=== PATIENT | female | born 1945 | race Caucasian/White ===

== ENCOUNTER → 2017-05-24 | Outpatient (CLI) | payer OTHER | LOC: RAD 01:34 | DX: Z12.31 Encounter for screening mammogram for malignant neoplasm of breast (principal) ==

== ENCOUNTER → 2018-06-20 | Outpatient (CLI) | payer OTHER ==
[~2018-06-20] VITALS: Ht 172.7 cm; Wt 73.9 kg
[~2018-06-20] MED LIST: ASPIR 8181 MG PO; CENTRUM SILVER1 EAC4 PO; NAPROSYN500 MG PO; ZOCOR20 MG PO; ZYRTEC10 M5 PO
--- NOTE | ~2018-06-20 | P ---
[facility] [place] [address] PROCEDURE REPORT Name: STANLEY GARCIA Room #: REG [facility]#: [id number] Admission: 06/20/18 Attend Phys: Alejandro Brandon MD Discharge: Date of : 49 Report #: [id number] THIS REPORT FOR: //name// CC: Alejandro Nicholas BRIEF HISTORY: The patient is a 73-year-old woman with history of colon adenoma, for high risk screening colonoscopy. PREOPERATIVE DIAGNOSIS: High risk screening colonoscopy. POSTOPERATIVE DIAGNOSES: 1. Cecal polyp. 2. Moderate left-sided diverticulosis coli with questionable focal diverticulitis. MEDICATIONS: Deep sedation with propofol per Anesthesia. SPECIMEN: Cecal polyp. ESTIMATED BLOOD LOSS: 3 mL. PROCEDURE: Colonoscopy to cecum and terminal ileum with biopsy. FINDINGS: Prior to propofol sedation, procedure of colonoscopy discussed with the patient as well as potential risks and its complications. She indicates she understands and desires to proceed. DESCRIPTION OF PROCEDURE: With the patient in left lateral decubitus position, digital examination was completed, which revealed no abnormalities. Subsequently, the Olympus video colonoscope was introduced in the rectum, advanced under direct vision to the cecum. Done with minimal difficulty. The cecum was identified by the ileocecal valve and the appendiceal orifice. I was able to visualize the distal segment of terminal ileum, which was inspected and noted to be unremarkable. At that point, the scope was slowly withdrawn and careful circumferential views obtained including retroflexing the scope in the ascending colon. Upon slow withdrawal of the scope, the prep was noted to be excellent. The mucosa was within normal limits, normal vascular pattern, normal light reflex. In the cecum, a 2 x 4-5 mm flat polyp was seen and removed with multiple passes of the biopsy forceps. As we withdrew the scope through the remainder of the colon, no additional polyps were seen. The mucosa was normal. In his left colon, particularly the sigmoid colon, there was moderately severe diverticular disease. There were 2 diverticula, small amount of whitish material indicating possibly of focal diverticulitis. Large amount of purulent material was not seen. Scope was further withdrawn and no additional [facility] [address] [place] [address] PROCEDURE REPORT Name: STANLEY GARCIA Room #: REG [facility]#: [id number] Admission: 06/20/18 Attend Phys: Alejandro Brandon MD Discharge: Date of : 49 Report #: [id number] abnormalities were seen. Scope was withdrawn in the rectum. Upon retroflexion, no abnormalities were seen. Scope was withdrawn. The patient tolerated the procedure well. CONDITION OF THE PATIENT UPON DISCHARGE: Following the procedure, the patient is drowsy, aroused, conversant and will be discharged home when fully ambulatory. INSTRUCTIONS TO THE PATIENT AND FAMILY AT THE TIME OF DISCHARGE: We will follow up with the pathology of the polyp. If the polyp is an adenomatous, return in 5 years; if it is hyperplastic, then 10 years. There is a question of focal diverticulitis involving 2 separate diverticula. We will empirically place her on Cipro 500 mg twice daily for 7 days. If she should have symptoms of diverticulitis, she is to return for followup. Last colonoscopy was more than 5 years ago. Withdrawal time from the cecum was 10 minutes 2 seconds. <ELECTRONICALLY SIGNED> By: Alejandro Brandon MD 06/24/18 1044 1105 1350 Alejandro Brandon MD /nt
--- NOTE | ~2018-06-20 | PATH ---
[facility] [address] [place] [address] PATHOLOGY RPT PROCEDURE Name: STANLEY GARCIA Room #: REG [facility].#: [id number] Admission: 06/20/18 Date of : 49 Discharge: Report #: [id number] Path Case #: [id number] [facility] Accession Number: [id number] . 01 Material submitted: . BX OF CECAL POLYP . 01 Clinical history: . Hx of polyps . 02 Diagnosis: Polyp, at cecal polyp, endoscopic biopsy: - Tubular adenoma. - Negative for high-grade dysplasia. (IUV:arun; 06/21/2018) QMS/06/21/2018 . 02 Electronically signed: . Marycruz Morejon MD, Pathologist NPI- [id number] . 01 Gross description: . Received in formalin labeled "Stanley Garcia, BX of cecal polyp," are 3 segments of aparicio soft tissue measuring 0.9 x 0.5 x 0.2 cm in aggregate dimensions and ranging from 0.3 to 0.5 cm in maximum dimension. The specimen is submitted entirely in cassette A1. (TSD; 06/20/2018) TOB/TOB . 02 Pathologist provided ICD-10: D12.0 . 02 CPT . 813829 Specimen Comment: A courtesy copy of this report has been sent to Specimen Comment: [phone], , . Specimen Comment: Report sent to , and Performed at: [address], [place] [id number] MD Miguel Angel Vegas MD Phone: [phone] Performed at: [address] [id number] MD Marycruz Morejon MD Phone: [phone]
--- NOTE | ~2018-06-20 | P ---
[facility] [place] [address] PROCEDURE REPORT Name: STANLEY GARCIA [id number] Admission: 06/20/18 Attend Phys: Alejandro Brandon MD Discharge: Date of : 49 Report #: [id number] THIS REPORT FOR: //name// CC: Alejandro Nicholas MD DATE OF SERVICE: 06/20/2018 BRIEF HISTORY: The patient is a 73-year-old woman with a history of colon adenoma, who presents for high risk screening colonoscopy. PREOPERATIVE DIAGNOSIS: High risk screening colonoscopy. POSTOPERATIVE DIAGNOSES: 1. Flat polyp, cecum. 2. Moderate sigmoid diverticulosis coli. MEDICATIONS: Deep sedation with propofol per Anesthesia. SPECIMEN: Cecal polyp. ESTIMATED BLOOD LOSS: <ELECTRONICALLY SIGNED> By: Alejandro Brandon MD 06/24/18 1044 1054 1308 Alejandro Brandon MD /nt
== END | disposition home or self-care (01) ==
LOC: GI 08:30
DX: Z12.11 Encounter for screening for malignant neoplasm of colon (principal); Z86.010 Personal history of colon polyps; D12.0 Benign neoplasm of cecum; K57.30 Diverticulosis of large intestine without perforation or abscess without bleeding; E78.5 Hyperlipidemia, unspecified; Z98.890 Other specified postprocedural states; Z85.3 Personal history of malignant neoplasm of breast; Z88.2 Allergy status to sulfonamides; Z79.82 Long term (current) use of aspirin; Z79.899 Other long term (current) drug therapy
CPT/HCPCS: 62110; 62900

== ENCOUNTER → 2019-06-11 | Outpatient (CLI) | payer OTHER | LOC: RAD 01:17 | DX: Z12.31 Encounter for screening mammogram for malignant neoplasm of breast (principal) ==

== ENCOUNTER → 2020-06-15 | Outpatient (CLI) | payer OTHER | LOC: BC 07:40 | PROVIDERS: ATTEND Obstetrics & Gynecology | DX: Z12.31 Encounter for screening mammogram for malignant neoplasm of breast (principal) ==

== ENCOUNTER → 2021-06-21 | Outpatient (CLI) | payer OTHER | LOC: BC 08:12 | PROVIDERS: ATTEND Obstetrics & Gynecology | DX: Z12.31 Encounter for screening mammogram for malignant neoplasm of breast (principal); N63.10 Unspecified lump in the right breast, unspecified quadrant; N64.89 Other specified disorders of breast ==

== ENCOUNTER → 2021-06-23 | Outpatient (CLI) | payer OTHER | LOC: RAD 09:45 | PROVIDERS: ATTEND Obstetrics & Gynecology | DX: N63.21 Unspecified lump in the left breast, upper outer quadrant (principal) ==

== ENCOUNTER → 2021-07-04 | Outpatient (CLI) | payer OTHER ==
--- NOTE | 2021-07-06 18:06 | PATH ---
[facility] [place] [address] PATHOLOGY RPT PROCEDURE Name: STANLEY GARCIA Room #: REG [facility]#: [id number] Admission: 07/04/21 Date of : 49 Discharge: Report #: [id number] Path Case #: [id number] [facility] Accession Number: [id number] . 01 Material submitted: . breast - LEFT BREAST NODULE. Modifiers: left . 01 Clinical history: . Left breast nodule . 02 Diagnosis: Breast tissue, 10:00, 3 cm from nipple, needle biopsy: - Invasive ductal carcinoma, histologic grade 1 (see comment). (SCA:pablo; 07/06/2021) . . CASE SUMMARY: (INVASIVE CARCINOMA OF THE BREAST: Biopsy) . SPECIMEN Procedure ___ Needle biopsy . Specimen Laterality ___ Left . TUMOR +Tumor Site Specify Clock Position ___ 10 o'clock ___ Specify distance from nipple in centimeters: 3 cm . Histologic Type ___ Invasive carcinoma of no special type (ductal) . Histologic Grade ([place] Histologic Score) Glandular (Acinar) / Tubular Differentiation ___ Score 2 (10% to 75% of tumor area forming glandular / tubular structures) . Nuclear Pleomorphism ___ Score 2 (Cells larger than normal with open vesicular nuclei, visible nucleoli, and moderate variability in both size and shape) . Mitotic Rate ___ Score 1 . Overall Grade ___ Grade 1 (scores of 3, 4 or 5) [address] [address] PATHOLOGY RPT PROCEDURE Name: STANLEY GARCIA [facility] [id number] Admission: 07/04/21 Date of : 49 Discharge: Report #: [id number] Path Case #: [id number] . Ductal Carcinoma In Situ (DCIS) ___ Not identified . SPECIAL STUDIES +Breast Biomarker Studies are pending, results will be reported as an addendum. . E-cadherin immunohistochemical stain was performed on block A1 and the tumor cells are positive, supporting the above diagnosis. . [facility]BR 07/06/2021 1720 Local . 02 Comment: This case was co-reviewed by Dr. Melissa Cruz, who agrees with the above diagnosis on 07/06/2021. . The findings were communicated to Dr. Messi Bang on 07/06/2021 at 4:20 p.m. . (SCA:pablo; 07/06/2021) . 02 Electronically signed: . Carlos Manuel Echols DO, Pathologist NPI- [id number] . 01 Gross description: . The specimen is received in formalin, labeled "Stanley Garcia, left breast 1:00". Received are 4 needle cores of fibrofatty tissue measuring 2.3 x 0.8 x 0.2 cm in aggregate dimensions. The specimen is submitted entirely in cassettes A1 to A3. The specimen is collected at 1255 and placed into formalin at 1300 on .. The specimen is removed from formalin at 2150 on 07/04/2021. The total formalin fixation time is 8 hours and 55 minutes. ([facility]; 07/04/2021) [facility] 07/06/2021 [facility] Local . 02 Pathologist provided ICD-10: C50.912 . 02 CPT . 189046, [id number] Specimen Comment: A courtesy copy of this report has been sent to [phone] Specimen Comment: [phone] Specimen Comment: Report sent to / DR FERNANDEZ Performed at: 01 [place] [address] PATHOLOGY RPT PROCEDURE Name: STANLEY GARCIA A Room #: REG [facility]#: [id number] Admission: 07/04/21 Date of : 49 Discharge: Report #: [id number] Path Case #: [id number] [address], [place], [place] [id number] MD Manuelito Low MD Phone: [phone] Performed at: [address] [id number] MD Ward Diehl MD Phone: [phone]
== END | disposition home or self-care (01) ==
LOC: ULTRA 11:50
PROVIDERS: ATTEND Obstetrics & Gynecology
DX: C50.912 Malignant neoplasm of unspecified site of left female breast (principal); R92.8 Other abnormal and inconclusive findings on diagnostic imaging of breast; Z79.899 Other long term (current) drug therapy; Z88.2 Allergy status to sulfonamides